=== PATIENT | female | born 1975 | race American Indian/Alaskan Native ===

== ENCOUNTER 2016-06-11 08:54 | Emergency (ER) | payer MEDICARE ==
[2016-06-11 09:04] VITALS: BP 136/96
[2016-06-11] MEDS ORDERED: TYLENOL PO ONE (09:39)
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
--- NOTE | 2016-06-11 10:09 | XRay Report ---
LEFT FINGERS, 3 VIEWS: History: Left fifth finger pain. Findings: Normal bone mineralization. No osseous abnormality or joint pathology is detected. Normal soft tissues. Impression: Normal left fingers.
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
== END 2016-06-11 10:23 | disposition home or self-care (01) ==
LOC: ED 08:54
DX: G56.02 Carpal tunnel syndrome, left upper limb (principal); M65.849 Other synovitis and tenosynovitis, unspecified hand; F17.200 Nicotine dependence, unspecified, uncomplicated

== ENCOUNTER 2016-12-30 01:35 | Emergency (ER) | payer SELFPAY ==
[2016-12-30] MEDS ORDERED: ULTRAM PO ONE (02:47)
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
[2016-12-30 03:16] VITALS: BP 140/85
== END 2016-12-30 03:16 | disposition home or self-care (01) ==
LOC: ED 01:35
DX: K02.9 Dental caries, unspecified (principal); K05.10 Chronic gingivitis, plaque induced; F17.210 Nicotine dependence, cigarettes, uncomplicated
CPT/HCPCS: 99282